=== PATIENT | male | born 1995 | race Caucasian/White ===

== ENCOUNTER 2017-12-09 17:09 | Emergency (ER) | payer OTHER ==
[~2017-12-09] VITALS: Ht 172.7 cm; Wt 96.4 kg
[2017-12-09 17:21] VITALS: TEMP 37; Ht 172.7 cm; Wt 96.4 kg
[2017-12-09] MEDS ORDERED: XYLOCAINE 1%/SOD BICARB 20 ML VIAL INFIL ONE (18:00)
[2017-12-09] MEDS ORDERED: SULFAMETHOXAZOLE/TRIMETHOPRIM DS 800/160MG TAB PO ONE (18:15)
[2017-12-09] MEDS ORDERED: CEPHALEXIN MONOHYDRATE 250 MG CAP PO ONE (18:15)
--- NOTE | 2017-12-09 18:18 | EMERGENCY ROOM VISIT NOTE ---
ED Visit Note First contact with patient: 17:49 CHIEF COMPLAINT: Infection on the right groin HISTORY OF PRESENT ILLNESS: This 21-year-old male presents to ER with chief complaint of an abscess in the right groin region. The patient states that he noticed it on Wednesday and has been getting progressively worse since that time. The patient states yesterday he stuck a knife in it and it drained some fluid but there has been no drainage today. The patient denies any fever. The patient denies any history of MRSA. REVIEW OF SYSTEMS: 6 system review was performed and was negative unless stated otherwise in history of present illness. PMH: The patient is healthy; asthma SOCIAL HISTORY: Patient is a [employer] student. The patient denies any tobacco or alcohol use. PHYSICAL EXAM: Vital Signs: Was reviewed reviewed Nurse's notes. General: 21- year-old white male appears in no acute distress. MENTAL Status: Alert and oriented 3. RIGHT LOWER ABDOMEN: Just above the genital region on the right side there is a red indurated area with central fluctuance. There is a black scabbed area centrally located. There is mild surrounding erythema but no streaking. There is no drainage noted at this time. EMERGENCY DEPARTMENT COURSE: The patient was evaluated. PROCEDURE: I&D of right groin abscess Verbal consent was obtained. The area was prepped with Betadine 3. The area was anesthetized with 1% buffered lidocaine. A small incision was made using an 11 blade scalpel. Purulent drainage was expressed. A culture was obtained. Antibiotic ointment and a bandage was applied. The patient tolerated procedure well. The patient was given 1 tablet of Bactrim DS and 1 tablet of Keflex 500 mg while in the ER. The patient was offered stronger pain medication but declined. The patient was discharged home in stable condition. DIAGNOSIS: Abscess of the right lower abdomen DISCHARGE INSTRUCTIONS & TREATMENT: Warm compresses to the affected area intermittently and frequently over the next 24-48 hours. Ibuprofen 600 mg every 6 hours with food for pain. Take Keflex and Bactrim as prescribed. Recommend recheck with [facility] on Wednesday or Wednesday. If symptoms worsen in the interim, return to ER. Vital Signs Date Time Temp Pulse Resp B/P (MAP) Pulse Ox O2 Delivery O2 Flow Rate FiO2 12/09/17 17:21 37.0 102 16 162/81 97 Room Air Departure Information Referrals No Doctor, Assigned (PCP) Patient Instructions [facility]
[2017-12-09] MEDS ORDERED: SULF800T23 PO (18:20)
[2017-12-09] MEDS ORDERED: CEPH500C2 PO (18:20)
[2017-12-09 18:37] VITALS: BP 146/80; PULSE 81; O2SAT 100
--- NOTE | 2017-12-13 12:58 | EDITING REQUIRED CODING QUERY ---
CODING QUERY Carmen OVIEDO, To promote full compliance with coding requirements relating to patient care, provider participation is requested in all cases of monument letterer uncertainty. Please assist us with the question(s) below: Coding Question(s): History of Present Illness states patient has Abscess of Groin. Procedure was an I&D of the groin. Impression states Abscess of Right Lower Abdomen. Please clarify Abscess location below: Physician's Response(s): Tavia Rt groin Thank you Leeroy Heredia Principal Diagnosis: "_that condition established after study, to be chiefly responsible for occasioning the admission of the patient to the hospital for care." Co-Existing Principal Diagnosis: "_when two or more diagnoses equally meet the criteria for principal diagnosis as determined by the circumstances of admission, diagnostic work up, and/or therapy provided, and the Alphabetic Index, Tabular List, or another coding guideline does not provide sequencing direction, any one of the diagnoses may be sequenced first." "When the physician has documented what appears to be a current diagnosis in the body of the record, but has not included the diagnosis in the final diagnostic statement, the physician should be asked whether the diagnosis should be added." (Source [facility] 2 QTR90. p3-4)
== END 2017-12-09 18:39 | disposition home or self-care (01) ==
LOC: C.EDB 17:10 → C.EDD 18:39
DX: L02.214 Cutaneous abscess of groin (principal); J45.909 Unspecified asthma, uncomplicated